=== PATIENT | female | born 1955 | race Caucasian/White ===

== ENCOUNTER 2023-03-23 01:30 | Day surgery (SDC) | payer OTHER, SELFPAY ==
[2023-03-16 10:06] VITALS: BMI 23.6
--- NOTE | 2023-03-16 10:14 | PC.NURSE ---
Report to the Outpatient Waiting Room, entrance under the green pavilion located off [facility], at time __0600 on date __03/23/23 . Planned Procedure Time: ___729 . Time changes happen often and if your time is changed the preop area will call you the afternoon before. - You and your visitor will be asked to self-screen and do not enter if you have any COVID symptoms. - A mask is optional within the hospital at this time. Patients may have clear liquids (water, carbonated beverages, clear teas, apple juice) until 3 hours prior to surgery (0430 AM) with a maximum of 20 ounces. - No food from midnight until time of surgery - Infants may have breast milk until 4 hours before surgery, formula 6 hours prior to surgery. - Children will be allowed to drink immediately following surgery. If applicable, please bring a bottle or sippy cup to assist with drinking. Juice, water, soda, and popsicles are readily available. For infants on formula, please bring formula the day of surgery. Pacifiers are allowed. Take the following medications with a SIP of water the morning of surgery: GABAPENTIN DO NOT STOP ANY OF YOUR OTHER PRESCRIPTION MEDICATIONS PRIOR TO SURGERY ?EXCEPT THE FOLLOWING Medications to discontinue per physician N/A Date to take last dose Please no make-up, nail [place], hairspray, perfume, deodorant, or body powder the day of surgery. No jewelry (including any body piercings) or valuables the day of surgery, leave them at home. Please take a shower or bath the night before, or the morning of, surgery with an antibacterial soap. Wear comfortable, loose fitting clothing. Children are encouraged to wear pajamas. - Jewelry must be removed prior to entering the operating room. Rings and piercings that are not removed may be cut off. - The hospital will not accept responsibility for valuables. - Please leave all valuables, including medications, at home the day of surgery. If you are going home after surgery, a licensed funeral driver must drive you home. - NO public transportation without another adult if you receive anesthesia. - We recommend that an adult stay with you for 24 hours following discharge. - We also recommend that you do not drive, make important decision, drink alcoholic beverages, or take any drugs that were not prescribed by your health care provider for at least 24 hours after your discharge time. For Pediatric surgeries, we recommend two adults accompany the child home. Follow any additional instructions given to you from your surgeon. If you or anyone in your household have experienced Covid symptoms in the past week, please notify your surgeon or the nurse liaison at the phone number below for possible testing. Telephone instructions given to ____PT and asked if any additional questions and then verbalized understanding. Patient advised to call surgeon office or pre surgery nurse liaison [phone] if any additional questions.
--- NOTE | 2023-03-22 09:58 | P.PNAN_ITS ---
Anes - Initial Pre Proc Eval Procedure: Operation Date: 03/23/23 07:30 Proposed Procedures p Excision of Left Volar Wrist Ganglion Cyst - Len Belle MD Date/Time: 03/22/23 09:58 Surgeon: Len Belle MD Pre Op Diagnosis: Left Volar Wrist Ganglion Cyst Patient Data Age: 67 Gender: F Height: 1.63 m Weight: 62.27 kg Allergies Allergy/AdvReac Type Severity Reaction Status Date / Time clindamycin Allergy Anaphylactic Verified 03/16/23 10:02 Shock hydrocodone AdvReac Nausea and Verified 03/16/23 10:02 Vomiting hydromorphone [From Dilaudid] AdvReac BLOOD Verified 03/16/23 10:02 PRESSURE DOPS Home Medications Medication Instructions Recorded Confirmed Type atorvastatin 40 mg tablet 40 mg QAM 03/16/23 03/16/23 History cimetidine 400 mg tablet 400 mg BID 03/16/23 03/16/23 History ergocalciferol (vitamin D2) 1,250 50,000 unit WEEKLY 03/16/23 03/16/23 History mcg (50,000 unit) capsule gabapentin 300 mg capsule 300 mg TID 03/16/23 03/16/23 History hydrochlorothiazide 25 mg tablet 25 mg QAM 03/16/23 03/16/23 History montelukast 10 mg tablet 10 mg QAM 03/16/23 03/16/23 History Results Review: All pre-operative results and documents have been reviewed as part of the pre- operative evaluation. [facility] Past Medical History Medical History (Updated 03/22/23 @ 09:59 by Corona Shirley DO) GERD (gastroesophageal reflux disease) Hyperlipidemia Hypertension Surgical History Surgical History (Updated 03/22/23 @ 09:59 by Corona Shirley DO) History of appendectomy History of cholecystectomy History of hysterectomy Social History Social History Smoking packs per day: 0.75 Smoking cigarettes per day: 15.0 Years smoked: 50 Smoking pack-years: 37.50 Smoking status: Current every day smoker Second hand tobacco smoke exposure: Yes Alcohol intake: never Substance use: never Substance use type: does not use Living arrangements: alone Spiritual care concerns: No Anes - Eval Final PreProcedure Day of Procedure 03/22/23 09:58 Patient weight: normal Heart: regular rate and rhythm Lungs: clear to auscultation and normal air movement Airway: Mallampati scale class II Neurological: alert and oriented Last oral intake: >/= 8 hours ASA classification: III Emergent: no Anesthetic plan: proceed Anesthesia type and monitoring: general GIVS and standard monitoring Results Review: All pre-operative results and documents have been reviewed as part of the pre- operative evaluation. Informed Consent: The patient's anesthetic plan and its attendant risks and benefits were discussed with the patient/family/POA. Questions were solicited and answers provided to the satisfaction of the patient/family/POA.
[2023-03-23] VITALS (7 sets, daily range): BP systolic 104–122; BP diastolic 48–57; PULSE 68–79; RESP 16–20; TEMP 36.8; O2SAT 96–99
--- NOTE | 2023-03-23 06:32 | SUR.PREOP ---
0610-Pt has event monitor that she states was placed yesterday (03/22/23). See updated cardiac assessment for further details.
--- NOTE | 2023-03-23 07:12 | WPDHPUPDATE1 ---
History and Physical Update Update Date/Time: 03/23/23 07:12 History and Physical has been reviewed, including an updated exam of the patient. There are NO changes in the patient's condition. Risks, benefits, and alternatives have been discussed and questions answered. Patient agrees to proceed with procedure. Emilia had a electromedical service engineer placed yesterday. We don't have any knowledge regarding why this was placed or what the cardiologists concern is. Anesthesia staff believes it is best to cancel the anesthesia order for this patient and reschedule at a later date. Emilia is willing to have this surgery done under local . She had such surgery on her other wrist by local some years ago.
--- NOTE | 2023-03-23 07:21 | SUR.PREOP ---
0645-DR. GOMEZ AWARE PT TO ER IN NOVEMBER W/CP AND SOB, APPT W/PRIMARY CARE ON 02/[address] GRIDER (PERSONAL FINANCIAL ADVISOR)-SAW 02/10 AND EVENT MONITOR PLACED YESTERDAY (03/22/23) TO RULE OUT CARDIAC VS ANXIETY. PT CONTINUES TO HAVE EPISODES OF CP/SOB WITH MOST RECENT LAST EVENING. 0650-SPOKE W/DR. LAGOS WILL EVALUATE ON ARRIVAL. 0715-DR. LAGOS HERE, SURGERY WILL BE DONE UNDER LOCAL.
[2023-03-23] MEDS: LIDO 1%/EPINEPHRINE 1:100,000 20 ML VIAL 7 ML INFILTRATE (08:17)
--- NOTE | 2023-03-23 08:35 | SUR.PHASEII ---
0830: Patient Dressed, no c/o pain, VSS. No iv to remove. Patient taking PO intake. Awaiting on ride to arrive. Will go over Discharge packet and discharge patient once ride arrives.
--- NOTE | 2023-03-23 08:37 | W.PM.PROC2 ---
Procedure Note - Detailed Date of Procedure 03/23/23 Pre-op Diagnosis Left Volar Wrist Ganglion Cyst Post-op Diagnosis Other (Lipoma ) Procedure Performed Excision of left volar wrist lipoma Surgeon Len Belle MD Anesthesia Local Description of Procedure The small mass on the left volar wrist was marked on the patient with her consent in the holding area. She was taken to the operating room where she was placed supine on the operating table. The procedure had been scheduled to be done under sedation anesthetic but the patient just had a cardiac event monitor placed yesterday and details of that were not available this morning and the anesthesia was changed to local . The extremity was prepped and draped in usual fashion. The site was marked again for incision and this area the locally infiltrated with 1% lidocaine with epinephrine. About 15 minutes of dwell time was allowed. The tourniquet was not utilized. The incision was made. At no point did we encounter a ganglion cyst. There was a small fatty tumor overlying the retinaculum. This was removed. The radial artery was identified proximal to the retinaculum it was carefully explored distally to a bifurcation. It appeared that 1 branch of this did not have a palpable pulse. I considered the possibility of a thrombosed radial artery branch but did not further explore that. We identified the flexor carpi radialis and a small incision through the retinaculum allowed us to determine there was no sub retinacular ganglion cyst. The wound was closed with 4-0 running Monocryl suture over a small strip of Surgicel. The usual bandage with Drake wrap was applied. The patient is discharged home with instructions in wound care and follow-up. No narcotics were ordered as she does not seem to tolerate those. Estimated Blood Loss 5 Tourniquet Time 0 Drains No Packing No Pathology None sent Complications No immediate complications Condition Stable Disposition Same day
== END 2023-03-23 09:12 | disposition home or self-care (01) ==
PROVIDERS: PCP Nurse Practitioner Family; Visit Provider Plastic Surgery
PROC: (CPT 25075; principal; 2023-03-23 07:30)
DX: D17.22 Benign lipomatous neoplasm of skin and subcutaneous tissue of left arm (principal); I10 Essential (primary) hypertension; K21.9 Gastro-esophageal reflux disease without esophagitis; F17.210 Nicotine dependence, cigarettes, uncomplicated
CPT/HCPCS: 25075; A9270